=== PATIENT | female | born 1965 | race Caucasian/White ===

== ENCOUNTER 2016-09-09 05:07 | Emergency (ER) | payer BC ==
[~2016-09-09] VITALS: Ht 162.6 cm; Wt 69.7 kg
[2016-09-09] MEDS ORDERED: METOPROLOL TARTRATE 50 MG TABLET ONE (05:56)
[2016-09-09] MEDS ORDERED: METOPROLOL TARTRATE 25 MG TABLET PO ONE (06:00)
[2016-09-09] MEDS ORDERED: LISI-167 PO (06:18)
[2016-09-09 06:39] LABS: ASPARTATE AMINO TRANSFERASE 17 U/L (15-37); BLOOD UREA NITROGEN 12 mg/dL (7-18)
[2016-09-09 07:13] VITALS: BP 169/94
== END 2016-09-09 07:14 | disposition home or self-care (01) ==
LOC: ED 05:49
DX: I10 Essential (primary) hypertension (principal); F17.210 Nicotine dependence, cigarettes, uncomplicated
CPT/HCPCS: 36415; 71010; 80053; 81003; 85025; 93005; 99285

== ENCOUNTER → 2020-02-14 | Outpatient (CLI) | payer BC ==
[~2020-02-14] MED LIST: LISI-167 PO
== END | disposition home or self-care (01) ==
LOC: CFH 13:53
PROVIDERS: ATTEND Family Medicine
DX: N63.20 Unspecified lump in the left breast, unspecified quadrant (principal)
CPT/HCPCS: 76642; 77062; 77066; G0279

== ENCOUNTER 2020-02-15 11:32 | Outpatient (CLI) | payer BC ==
[2020-02-15] MEDS ORDERED: LIDOCAINE 1%, 20ML ONE (14:07)
[2020-02-15] MEDS ORDERED: SODIUM BICARBONATE 4.2%, 5ML ONE (14:07)
== END 2020-02-15 23:59 | disposition home or self-care (01) ==
LOC: CFH 11:32
PROVIDERS: ATTEND Family Medicine
DX: C50.212 Malignant neoplasm of upper-inner quadrant of left female breast (principal); Z88.0 Allergy status to penicillin; Z88.2 Allergy status to sulfonamides; Z88.1 Allergy status to other antibiotic agents; Z79.899 Other long term (current) drug therapy
CPT/HCPCS: 19083; 77065; 88305; J3490; 88360

== ENCOUNTER 2020-03-05 07:12 | Outpatient (CLI) | payer BC ==
[2020-03-05] MEDS ORDERED: SODIUM BICARBONATE 4.2%, 5ML ONE (07:45)
[2020-03-05] MEDS ORDERED: LIDOCAINE 1%, 20ML ONE (07:45)
== END 2020-03-05 23:59 | disposition home or self-care (01) ==
LOC: CFH 07:12
PROVIDERS: ATTEND Surgery
DX: C50.312 Malignant neoplasm of lower-inner quadrant of left female breast (principal); I10 Essential (primary) hypertension; E61.1 Iron deficiency; F17.210 Nicotine dependence, cigarettes, uncomplicated; Z17.0 Estrogen receptor positive status [ER+]; Z79.899 Other long term (current) drug therapy; Z98.890 Other specified postprocedural states
CPT/HCPCS: 19285; 77065; J3490

== ENCOUNTER → 2020-03-06 | Outpatient (CLI) | payer BC | END | disposition home or self-care (01) | LOC: STAR 14:23 | PROVIDERS: ATTEND Anesthesiology | DX: Z20.828 Contact with and (suspected) exposure to other viral communicable diseases (principal) | CPT/HCPCS: 87635 ==

== ENCOUNTER 2020-03-12 06:44 | Day surgery (SDC) | payer BC ==
[~2020-03-12] VITALS: Ht 162.6 cm; Wt 75.0 kg
[~2020-03-12 06:44] MED LIST changes: +BUPIVACAINE/PF 0.5% ONE; +EPINEPHRINE 1 MG/ML, 1ML ONE; +ISOSULFAN BLUE 10 MG/ML, 5ML IV ONE
[2020-03-12] MEDS ORDERED: HYDR25TA6 PO (07:53)
[2020-03-12] MEDS ORDERED: CHLORHEXIDINE 15 ML UDC MM ONE (08:00)
[2020-03-12] MEDS ORDERED: LACTATED RINGERS 1,000 ML IV SCH (08:00)
[2020-03-12 08:10] VITALS: BP 145/100
[2020-03-12 08:17] LABS: ALANINE AMINOTRANSFERASE 23 U/L (12-78); ALBUMIN 4.1 g/dL (3.4-5.0); ANION GAP 6 mmol/L (5-15); CALCIUM 8.9 mg/dL (8.5-10.1); CHLORIDE 107 mmol/L (98-107); CREATININE 0.79 mg/dL (0.55-1.02)
[2020-03-12 08:20] LABS: ALKALINE PHOSPHATASE 66 U/L (45-117); BILIRUBIN,TOTAL 0.9 mg/dL (0.2-1.0); TOTAL PROTEIN 7.2 g/dL (6.4-8.2)
[2020-03-12] MEDS ORDERED: FENTANYL PF 250 MCG/5ML ONE (09:41)
[2020-03-12] MEDS ORDERED: MIDAZOLAM 1 MG/ML, 2ML ONE (09:42)
[2020-03-12] MEDS ORDERED: SUCCINYLCHOLINE 20 MG/ML, 10ML ONE (09:44)
[2020-03-12] MEDS ORDERED: LIDOCAINE-MPF 2% ,5ML ONE (09:44)
[2020-03-12] MEDS ORDERED: LIDOCAINE 4%, 4 ML SYR/CANN TP ONE (09:44)
[2020-03-12] MEDS ORDERED: ONDANSETRON 2MG/ML, 2ML ONE (09:44)
[2020-03-12] MEDS ORDERED: DEXAMETHASONE 4 MG/ML, 1ML ONE (09:44)
[2020-03-12] MEDS ORDERED: NEOSTIGMINE 1 MG/ML, 10ML ONE (09:44)
[2020-03-12] MEDS ORDERED: GLYCOPYRROLATE 0.2MG/1ML, 5ML ONE (09:44)
[2020-03-12] MEDS ORDERED: CEFAZOLIN 1,000 MG ONE (09:44)
[2020-03-12] MEDS ORDERED: ROCURONIUM 10MG/ML,5ML ONE (09:44)
[2020-03-12] MEDS ORDERED: KETOROLAC 30 MG/1 ML ONE (09:44)
[2020-03-12] MEDS ORDERED: PROPOFOL 50 ML ONE (10:08)
[2020-03-12] MEDS ORDERED: HYDR-3240 PO (10:27)
[2020-03-12] MEDS ORDERED: METHOCARBAMOL 1,000 MG in DEXTROSE 5% 100 ML IV PRN (10:30)
[2020-03-12] MEDS ORDERED: LABETALOL 5MG/ML, 20ML IV PRN (10:30)
[2020-03-12] MEDS ORDERED: EPHEDRINE 50 MG/ML, 1ML IVPush PRN (10:30)
[2020-03-12] MEDS ORDERED: MEPERIDINE/PF 25MG/0.5ML IVPush PRN (10:30)
[2020-03-12] MEDS ORDERED: LORazepam 2 MG/ML, 1ML IVPush PRN (10:30)
[2020-03-12] MEDS ORDERED: hydrALAzine 20 MG/ML, 1ML IV PRN (10:30)
[2020-03-12] MEDS ORDERED: FENTANYL PF 100 MCG/2ML IV PRN (10:30)
[2020-03-12] MEDS ORDERED: PROMETHAZINE 25 MG/ML, 1ML IVPush PRN (10:30)
[2020-03-12] MEDS ORDERED: ACETAMINOPHEN 325 MG TABLET PO PRN (10:30)
[2020-03-12] MEDS ORDERED: OXYcodone 5 MG/5 ML ORAL.SOL UDC PO PRN (10:30)
[2020-03-12] MEDS ORDERED: HYDROmorphone 1 MG/ML, 1ML INJ IVPush PRN (10:30)
[2020-03-12] MEDS ORDERED: ONDANSETRON 2MG/ML, 2ML IVPush PRN (10:30)
[2020-03-12] MEDS ORDERED: ACETAMINOPHEN 650 MG/20.3 ML UDC ONE (10:56)
[2020-03-12] MEDS ORDERED: FENTANYL PF 100 MCG/2ML ONE (10:57)
[2020-03-12] MEDS ORDERED: OXYcodone 5 MG/5 ML ORAL.SOL UDC ONE (10:57)
== END 2020-03-12 13:45 | disposition home or self-care (01) ==
LOC: OUT 06:44
PROVIDERS: ATTEND Surgery
DX: C50.312 Malignant neoplasm of lower-inner quadrant of left female breast (principal); I10 Essential (primary) hypertension; E61.1 Iron deficiency; J44.9 Chronic obstructive pulmonary disease, unspecified; F17.210 Nicotine dependence, cigarettes, uncomplicated; Z17.0 Estrogen receptor positive status [ER+]; Z79.899 Other long term (current) drug therapy; Z85.828 Personal history of other malignant neoplasm of skin; Z83.3 Family history of diabetes mellitus; Z82.49 Family history of ischemic heart disease and other diseases of the circulatory system
CPT/HCPCS: 19301; 36415; 38525; 38792; 76098; 80053; 88307; A9541; J0171; J0330; J0690; J1100; J1885; J2250; J2405; J2704; J2710; J3010; J7120

== ENCOUNTER → 2020-07-25 | Outpatient (CLI) | payer BC ==
[~2020-07-25] MED LIST changes: -BUPIVACAINE/PF 0.5% ONE; -EPINEPHRINE 1 MG/ML, 1ML ONE; +HYDR-2214 PO; +HYDR25TA6 PO; -ISOSULFAN BLUE 10 MG/ML, 5ML IV ONE
== END | disposition home or self-care (01) ==
LOC: CFH 11:19
PROVIDERS: ATTEND Internal Medicine Hematology & Oncology
DX: C50.812 Malignant neoplasm of overlapping sites of left female breast (principal); N95.9 Unspecified menopausal and perimenopausal disorder
CPT/HCPCS: 77080